=== PATIENT | female | born 1995 | race African-American/Black ===

== ENCOUNTER 2016-07-05 16:11 | Emergency (ER) | payer MEDICAID, OTHER ==
[~2016-07-05] VITALS: Ht 154.9 cm; Wt 53.1 kg
[2016-07-05 16:45] VITALS: BP 133/77
[2016-07-05] MEDS ORDERED: BACITRACIN-POLYMYXIN B TOPICAL OINT UD TOP ONE (17:15)
== END 2016-07-05 17:12 | disposition home or self-care (01) ==
LOC: ER 16:25
DX: S61.011A Laceration without foreign body of right thumb without damage to nail, initial encounter (principal); W25.XXXA Contact with sharp glass, initial encounter; Y93.89 Activity, other specified; Y99.8 Other external cause status; Y92.89 Other specified places as the place of occurrence of the external cause
CPT/HCPCS: 12001